=== PATIENT | male | born 1980 | race Two or more races ===

== ENCOUNTER 2023-01-24 11:38 | Emergency (ER) | payer OTHER ==
[2023-01-24 11:54] VITALS: BMI 43.8
[2023-01-24] MEDS ORDERED: SODIUM CHLORIDE 1,000 ML IV ONE (12:33)
[2023-01-24] MEDS ORDERED: ACETAMINOPHEN 1000 MG/100 ML BAG IVPB ONE (12:34)
[2023-01-24 13:12] LABS: EPI CELLS 3 /uL (0-25.1); HYALINE CASTS 0 /uL (0-3.1); PH,URINE 8.5 (5.0-8.0); URINE APPEARANCE CLEAR; URINE BACTERIA 23 /uL (0-1359); URINE BILIRUBIN NEGATIVE (NEGATIVE); URINE COLOR YELLOW; URINE GLUCOSE (UA) NEGATIVE (NEGATIVE); URINE KETONE TRACE (NEGATIVE); URINE LEUK ESTERASE NEGATIVE (NEGATIVE); URINE NITRITE NEGATIVE (NEGATIVE); URINE PROTEIN NEGATIVE (NEGATIVE); URINE RBC 289 /uL (0-23.9); URINE WBC 4 /uL (0-25.8)
[2023-01-24 13:51] LABS: BASO % 0.4 % (0-2.0); EOS % 0.1 % (0-4.5); LYMPH % 8.9 % (8-40); MCHC 33.3 g/dl (32.0-35.9); MEAN CELL VOLUME 78.1 fl (80-96); MEAN PLT VOLUME 9.1 fl (7.5-11.1); MONO % 2.6 % (3.8-10.2); PLATELET COUNT 254 10^3/uL (134-434); RBC 5.38 M/mm3 (4.00-5.60); RDW 13.2 % (11.9-15.9); WHITE BLOOD COUNT 12.5 K/mm3 (4.0-10.0)
[2023-01-24 14:04] LABS: ACTIVATED PTT 30.9 SECONDS (25.2-36.5); INR 1.07 (0.83-1.09); PROTHROMBIN TIME (PATIENT) 12.4 SEC (9.7-13.0)
[2023-01-24 14:38] LABS: POTASSIUM 4.5 mmol/L (3.5-5.1)
[2023-01-24 14:40] LABS: CALCIUM 9.1 mg/dL (8.5-10.1)
[2023-01-24 14:43] LABS: CREATININE 1.3 mg/dL (0.55-1.3)
[2023-01-24 14:45] LABS: BILIRUBIN,TOTAL 0.8 mg/dL (0.2-1)
[2023-01-24] MEDS ORDERED: SODIUM CHLORIDE 1,000 ML IV STA (16:19)
[2023-01-24] MEDS ORDERED: CEFTRIAXONE 1 GM in DEXTROSE 5%-WATER - 100 ML IVPB ONE (16:36)
[2023-01-24] MEDS ORDERED: TAMSULOSIN HCL 0.4 MG CAP PO ONE (16:38)
[2023-01-24] MEDS ORDERED: TAMSULOSIN HCL 0.4 MG CAP ONE (17:20)
[2023-01-24] MEDS ORDERED: CEFTRIAXONE 1 GM/50 ML BAG ONE (17:21)
[2023-01-24 17:37] VITALS: BP 151/90; PULSE 89; RESP 12; TEMP 98
== END 2023-01-24 17:37 | disposition home or self-care (01) ==
LOC: JER 11:38
PROC: 3E03329 Introduction of Other Anti-infective into Peripheral Vein, Percutaneous Approach (ICD-10-PCS; principal; 2023-01-24)
PROC: 3E033GC Introduction of Other Therapeutic Substance into Peripheral Vein, Percutaneous Approach (ICD-10-PCS; 2023-01-24)
PROC: 3E0337Z Introduction of Electrolytic and Water Balance Substance into Peripheral Vein, Percutaneous Approach (ICD-10-PCS; 2023-01-24)
DX: N23 Unspecified renal colic (principal)
CPT/HCPCS: 36415; 74176-TC; 80053; 81003; 83690; 85025; 85610; 85730; 87086; 99284-25

== ENCOUNTER 2023-03-05 10:05 | Emergency (ER) | payer BC, OTHER ==
[2023-03-05 10:28] VITALS: BP 158/92; PULSE 87; RESP 18; TEMP 98; BMI 45.1
[2023-03-05] MEDS ORDERED: KETOROLAC TROMETHAMINE 30 MG/1 ML VIAL IVPUSH ONE (10:48)
[2023-03-05] MEDS ORDERED: SODIUM CHLORIDE 1,000 ML IV ONE (10:48)
[2023-03-05] MEDS ORDERED: KETOROLAC TROMETHAMINE 15 MG/ML VIAL ONE (11:10)
[2023-03-05 11:34] LABS: BASO % 0.6 % (0-2.0); EOS % 0.8 % (0-4.5); HEMATOCRIT 40.6 % (35.4-49); HEMOGLOBIN 14.5 GM/dL (11.7-16.9); LYMPH % 18.7 % (8-40); MCH 27.1 pg (25.7-33.7); MCHC 35.6 g/dl (32.0-35.9); MEAN CELL VOLUME 76.2 fl (80-96); MEAN PLT VOLUME 8.3 fl (7.5-11.1); MONO % 7.1 % (3.8-10.2); NEUT % 72.8 % (42.8-82.8); PLATELET COUNT 252 10^3/uL (134-434); RBC 5.33 M/mm3 (4.00-5.60); WHITE BLOOD COUNT 10.8 K/mm3 (4.0-10.0)
[2023-03-05 11:35] LABS: EPI CELLS 1 /uL (0-25.1); HYALINE CASTS 0 /uL (0-3.1); URINE APPEARANCE CLEAR; URINE BACTERIA 8 /uL (0-1359); URINE BILIRUBIN NEGATIVE (NEGATIVE); URINE COLOR YELLOW; URINE GLUCOSE (UA) NEGATIVE (NEGATIVE); URINE KETONE NEGATIVE (NEGATIVE); URINE LEUK ESTERASE NEGATIVE (NEGATIVE); URINE NITRITE NEGATIVE (NEGATIVE); URINE PROTEIN NEGATIVE (NEGATIVE); URINE RBC 193 /uL (0-23.9); URINE UROBILINOGEN 0.2 mg/dL (0.2-1.0); URINE WBC 3 /uL (0-25.8)
[2023-03-05 11:56] LABS: POTASSIUM 4.3 mmol/L (3.5-5.1)
[2023-03-05 11:59] LABS: ALBUMIN 3.8 g/dl (3.4-5.0); BLOOD UREA NITROGEN 19.2 mg/dL (7-18)
[2023-03-05 12:02] LABS: CREATININE 1.4 mg/dL (0.55-1.3)
[2023-03-05 12:03] LABS: TOT PROT 7.8 g/dl (6.4-8.2)
[2023-03-05 12:04] LABS: BILIRUBIN,TOTAL 0.5 mg/dL (0.2-1)
== END 2023-03-05 14:26 | disposition home or self-care (01) ==
LOC: JER 10:05
PROC: 3E033NZ Introduction of Analgesics, Hypnotics, Sedatives into Peripheral Vein, Percutaneous Approach (ICD-10-PCS; principal; 2023-03-05)
PROC: 3E0337Z Introduction of Electrolytic and Water Balance Substance into Peripheral Vein, Percutaneous Approach (ICD-10-PCS; 2023-03-05)
DX: R33.9 Retention of urine, unspecified (principal); R10.31 Right lower quadrant pain; N20.0 Calculus of kidney
CPT/HCPCS: 36415; 74176-TC; 80053; 81003; 85025; 99284-25